=== PATIENT | female | born 1955 | race Caucasian/White ===

== ENCOUNTER 2019-03-21 11:57 | Outpatient (CLI) | payer OTHER | END 2019-03-21 12:01 | disposition home or self-care (01) | LOC: MAMO-SONO 11:57 | DX: Z12.39 Encounter for other screening for malignant neoplasm of breast (principal); Z12.31 Encounter for screening mammogram for malignant neoplasm of breast; Z87.898 Personal history of other specified conditions ==

== ENCOUNTER 2019-04-21 13:18 | Outpatient (CLI) | payer OTHER | END 2019-04-21 15:36 | disposition home or self-care (01) | LOC: SONOGRAMA 13:18 | DX: N60.11 Diffuse cystic mastopathy of right breast (principal); N60.12 Diffuse cystic mastopathy of left breast; N63.21 Unspecified lump in the left breast, upper outer quadrant ==

== ENCOUNTER 2019-05-08 11:52 | Outpatient (CLI) | payer OTHER | END 2019-05-08 14:55 | disposition home or self-care (01) | LOC: TOM 11:52 | DX: R51 Headache (principal); I63.89 Other cerebral infarction ==

== ENCOUNTER 2019-06-17 13:21 | Outpatient (CLI) | payer OTHER | END 2019-06-17 13:34 | disposition home or self-care (01) | LOC: MAMO-SONO 13:21 | DX: R92.0 Mammographic microcalcification found on diagnostic imaging of breast (principal); N60.11 Diffuse cystic mastopathy of right breast; N60.12 Diffuse cystic mastopathy of left breast ==

== ENCOUNTER 2019-09-03 09:39 | Outpatient (CLI) | payer OTHER | END 2019-09-03 09:49 | disposition home or self-care (01) | LOC: SONOGRAMA 09:39 | DX: M25.511 Pain in right shoulder (principal); M25.512 Pain in left shoulder ==

== ENCOUNTER 2019-09-19 10:47 | Outpatient (CLI) | payer OTHER | END 2019-09-19 11:02 | disposition home or self-care (01) | LOC: MAMO-SONO 10:47 | DX: R92.0 Mammographic microcalcification found on diagnostic imaging of breast (principal); N60.11 Diffuse cystic mastopathy of right breast; N60.12 Diffuse cystic mastopathy of left breast ==

== ENCOUNTER → 2020-04-28 | Outpatient (CLI) | payer OTHER | END | disposition home or self-care (01) | LOC: MAMO-SONO 08:45 | PROVIDERS: ATTEND Surgery | DX: Z12.31 Encounter for screening mammogram for malignant neoplasm of breast (principal); N60.11 Diffuse cystic mastopathy of right breast; N60.12 Diffuse cystic mastopathy of left breast ==

== ENCOUNTER 2021-01-24 19:08 | Emergency (ER) | payer OTHER ==
[~2021-01-24] VITALS: Ht 167.6 cm; Wt 90.7 kg
[2021-01-24] MEDS ORDERED: CRESTOR5 MG (19:47)
[2021-01-24] MEDS ORDERED: FENOFIBRATE50 MG (19:47)
[2021-01-24] MEDS ORDERED: HUMALOG100 UNIT/1 (19:48)
[2021-01-24] MEDS ORDERED: SYNTHROID88 MCG (19:48)
[2021-01-24] MEDS ORDERED: LANTUS SOL100 UNIT/1 (19:48)
[2021-01-24] MEDS ORDERED: COZAAR25 MG (19:48)
[2021-01-24] MEDS ORDERED: ENALAPRIL MALEA10 MG (19:48)
[2021-01-24] MEDS ORDERED: FORTAMET1000 MG (19:48)
[2021-01-24] MEDS ORDERED: NORFLEX100MG PO (23:06)
[2021-01-24] MEDS ORDERED: NAPR500T14 PO (23:06)
== END 2021-01-25 02:35 | disposition home or self-care (01) ==
LOC: ER 19:08
DX: S80.01XA Contusion of right knee, initial encounter (principal); W18.09XA Striking against other object with subsequent fall, initial encounter; Y93.89 Activity, other specified; Y92.018 Other place in single-family (private) house as the place of occurrence of the external cause; Y99.8 Other external cause status

== ENCOUNTER 2021-04-11 07:54 | Outpatient (CLI) | payer OTHER ==
[~2021-04-11 07:54] MED LIST: COZAAR25 MG; CRESTOR5 MG; ENALAPRIL MALEA10 MG; FENOFIBRATE50 MG; FORTAMET1000 MG; HUMALOG100 UNIT/1; LANTUS SOL100 UNIT/1; NAPR500T14 PO; NORFLEX100MG PO; SYNTHROID88 MCG
== END 2021-04-11 08:00 | disposition home or self-care (01) ==
LOC: SONOGRAMA 07:54 → MAMO-SONO 08:30
PROVIDERS: ATTEND Internal Medicine Endocrinology, Diabetes & Metabolism
DX: N28.89 Other specified disorders of kidney and ureter (principal); K76.0 Fatty (change of) liver, not elsewhere classified

== ENCOUNTER → 2021-05-31 | Outpatient (CLI) | payer OTHER | END | disposition home or self-care (01) | LOC: MAMO-SONO 13:44 | PROVIDERS: ATTEND Surgery | DX: N60.11 Diffuse cystic mastopathy of right breast (principal); N60.12 Diffuse cystic mastopathy of left breast; Z12.31 Encounter for screening mammogram for malignant neoplasm of breast ==

== ENCOUNTER 2021-11-02 11:41 | Outpatient (CLI) | payer OTHER | END 2021-11-02 11:46 | disposition home or self-care (01) | LOC: RAD 11:41 | PROVIDERS: ATTEND Internal Medicine Endocrinology, Diabetes & Metabolism | DX: M06.9 Rheumatoid arthritis, unspecified (principal) ==

== ENCOUNTER 2021-11-03 08:00 | Outpatient (CLI) | payer OTHER | END 2021-11-03 08:30 | disposition home or self-care (01) | LOC: PPH VACUNA 08:00 | PROVIDERS: ATTEND Emergency Medicine Pediatric Emergency Medicine | DX: Z23 Encounter for immunization (principal) ==

== ENCOUNTER 2022-08-29 15:33 | Outpatient (CLI) | payer OTHER | END 2022-08-29 15:40 | disposition home or self-care (01) | LOC: RAD 15:33 | PROVIDERS: ATTEND Physical Medicine & Rehabilitation | DX: M54.51 Vertebrogenic low back pain (principal) ==

== ENCOUNTER 2023-03-08 10:07 | Outpatient (CLI) | payer OTHER | END 2023-03-08 10:14 | disposition home or self-care (01) | LOC: MAMO-SONO 10:07 | DX: Z12.31 Encounter for screening mammogram for malignant neoplasm of breast (principal); N64.9 Disorder of breast, unspecified; M25.541 Pain in joints of right hand; M25.542 Pain in joints of left hand ==

== ENCOUNTER 2024-06-11 09:18 | Outpatient (CLI) | payer OTHER | END 2024-06-11 10:31 | disposition home or self-care (01) | LOC: MAMO-SONO 09:18 | PROVIDERS: ATTEND Specialist | DX: N60.11 Diffuse cystic mastopathy of right breast (principal); N60.12 Diffuse cystic mastopathy of left breast; Z12.31 Encounter for screening mammogram for malignant neoplasm of breast ==

== ENCOUNTER 2024-07-21 12:38 | Emergency (ER) | payer OTHER ==
[~2024-07-21] VITALS: Ht 167.6 cm; Wt 77.1 kg
[2024-07-21] MEDS ORDERED: INSULIN REGULAR, HUMAN 1,000 UNIT/10 ML UNITS IV ONE (13:45)
[2024-07-21 14:26] LABS: URINE APPEARANCE Clear; URINE BILIRRUBIN Negative (NEGATIVE); URINE BLOOD Negative; URINE COLOR Yellow; URINE KETONE Negative (NEGATIVE); URINE LEUKOCYTE Negative; URINE NITRATE Negative; URINE UROBILINOGEN 0.2 E.U./dl
[2024-07-21 14:30] LABS: URINE BACTERIA 40.3 uL (0.0-1933); URINE EPITHELIAL CELLS 14.2 uL (0.0-38.8); URINE WBC 7.1 uL (0.0-23.2)
[2024-07-21 14:31] LABS: HEMATOCRIT 51.6 % (36.0-45.00); MEAN CELL VOLUME 94.6 fL (80.00-100.00); MEAN CORPUSCULAR HGB CONC 33.6 g/dl (32.0-36.0); PLATELET COUNT 256 K/uL (150-450); RED BLOOD COUNT 5.46 M/uL (4.00-6.00); RED CELL DISTRIBUTION WIDTH 13.7 % (11.5-14.5)
[2024-07-21 14:35] LABS: URINE CAST 0.14 uL (0.0-1.40); URINE GLUCOSE >=1000 MG/DL (NEGATIVE); URINE PROTEIN 100 (NEGATIVE); URINE RBC 1.4 uL (0.0-20.8)
[2024-07-21 14:51] LABS: CALCIUM 10.4 mg/dL (8.5-10.1); CREATININE SERUM 1.55 mg/dL (0.55-1.02); GFR 33.05; HEMOGLOBIN 17.3 g/dL (12.0-15.00); MEAN CORPUSCULAR HEMOGLOBIN 31.6 pg (27.00-32.0); POTASSIUM 4.31 mEq/L (3.5-5.1)
== END 2024-07-21 16:13 | disposition home or self-care (01) ==
LOC: ER 12:40
PROVIDERS: Emergency Medicine
DX: E11.9 Type 2 diabetes mellitus without complications (principal); I10 Essential (primary) hypertension; E03.8 Other specified hypothyroidism; Z79.84 Long term (current) use of oral hypoglycemic drugs; Z79.4 Long term (current) use of insulin
CPT/HCPCS: 36415; 96365; 99282; J1815